=== PATIENT | male | born 1975 | race Caucasian/White ===

== ENCOUNTER 2017-01-28 07:39 | Emergency (ER) | payer OTHER | END 2017-01-28 10:00 | disposition home or self-care (01) | LOC: ER 07:39 | DX: N34.1 Nonspecific urethritis (principal); F17.210 Nicotine dependence, cigarettes, uncomplicated | CPT/HCPCS: 36415; 96372; J0696 ==

== ENCOUNTER 2017-02-16 11:26 | Emergency (ER) | payer OTHER | END 2017-02-16 14:29 | disposition home or self-care (01) | LOC: ER 11:26 | DX: S20.212A Contusion of left front wall of thorax, initial encounter (principal); S80.11XA Contusion of right lower leg, initial encounter; F17.210 Nicotine dependence, cigarettes, uncomplicated; Z88.6 Allergy status to analgesic agent; W01.0XXA Fall on same level from slipping, tripping and stumbling without subsequent striking against object, initial encounter ==